=== PATIENT | female | born 2000 | race American Indian/Alaskan Native ===

== ENCOUNTER 2021-05-03 11:58 | Outpatient (CLI) | payer MEDICAID ==
[2021-05-03 13:29] VITALS: BP 108/65
[2021-05-03 14:23] LABS: Bacteria,Urine 1+ /HPF (Negative); Bilirubin,Urine NEG (Negative); Blood,Urine NEG (Negative); Color,Urine Yellow (Yellow); Mucus,Urine FEW /HPF; Protein,Urine <15 mg/dL mg/dL (Negative); Urobilinogen,Urine < 2.0 mg/dL (<2.0)
[2021-05-03] MEDS ORDERED: LACTATED RINGERS 1,000 ML IV ONE (14:38)
[2021-05-03] MEDS: TERBUTALINE 1 MG/1 ML INJ SUB-Q SCH ×2 (15:41→16:39)
--- NOTE | 2021-05-03 18:36 | Ultrasound Report ---
ULTRASOUND OBSTETRIC LIMITED ULTRASOUND BIOPHYSICAL PROFILE INDICATION / CLINICAL INFORMATION: ANILA - DECREASED MOVEMENT. Clinical Gestational Age (GA): 34.4 weeks.days COMPARISON: None available. FINDINGS: BREATHING MOVEMENT = 2 GROSS BODY MOVEMENT = 2 TONE = 2 QUALITATIVE AMNIOTIC FLUID VOLUME = 2 TOTAL BIOPHYSICAL SCORE = 8/8 HEART RATE (beats per minute): 143 through 149. AMNIOTIC FLUID INDEX (cm) = 11.2 (normal = 7-24 cm) PRESENTATION: Cephalic. ADDITIONAL FINDINGS: None. IMPRESSION: 1. Biophysical Score = 8/8 2. Normal ANILA of 11.2 cm. Signer Name: Max Theodore MD Signed: 05/03/2021 6:32 PM Workstation Name: [email or web address]
== END 2021-05-03 18:00 | disposition home or self-care (01) ==
LOC: TRG 11:58 → APU 11:59 → TRG 18:00
PROVIDERS: ATTEND Obstetrics & Gynecology
DX: O36.8130 Decreased fetal movements, third trimester, not applicable or unspecified (principal); Z3A.34 34 weeks gestation of pregnancy
CPT/HCPCS: 59025; 76815; 76819; 81001; 96360; 96361; 96372; J3105; J7120

== ENCOUNTER 2021-05-31 17:06 | Outpatient (CLI) | payer MEDICAID ==
[2021-05-31 19:49] VITALS: BP 100/58
[2021-05-31] MEDS ORDERED: ACETAMINOPHEN 500 MG TAB PO ONE (21:00)
[2021-05-31 21:04] LABS: Hematocrit 29.8 % (30.3-42.9); Hemoglobin 9.2 gm/dl (10.1-14.3); Mean Corpuscular HGB Conc 31 % (30-34); Mean Corpuscular Volume 77 fl (79-97); Platelet Count 212 K/mm3 (140-440); Red Blood Count 3.86 M/mm3 (3.65-5.03); Red Cell Distribution Width 13.6 % (13.2-15.2)
== END 2021-05-31 23:20 | disposition home or self-care (01) ==
LOC: TRG 17:06 → APU 17:07 → TRG 23:20
PROVIDERS: ATTEND Obstetrics & Gynecology
DX: Z34.93 Encounter for supervision of normal pregnancy, unspecified, third trimester (principal); Z3A.38 38 weeks gestation of pregnancy
CPT/HCPCS: 36415; 59025; 85027